=== PATIENT | male | born 1950 | race Two or more races ===

== ENCOUNTER 2016-11-05 10:27 | Observation (INO) | payer SELFPAY ==
--- NOTE | 2016-11-05 11:10 | ER Document Report ---
ED Medical Screen (RME) - General Mode of Arrival: Ambulatory Information source: Patient TRAVEL OUTSIDE OF THE [place] IN LAST 30 DAYS: No - HPI Patient complains to provider of: confusion <NIKOLE IYER - Last Filed: 11/05/16 11:43> <SHANNAN DOWD - Last Filed: 11/05/16 19:37> - General Chief Complaint: Altered Mental Status Stated Complaint: ALTERED MENTAL STATUS Time Seen by Provider: 11/05/16 10:55 Notes: Patient is Khmer speaking, family is with him to interpret. Per family patient has been confused for the past 2 weeks, does not know his location, and urinating in odd places. Family states that he recently came to the [place] from [place] about 3 weeks ago, en route patient missed all of his flights. Patient denies pain and fever. Patient is not on any new medications and has no history of dementia. (NIKOLE IYER) - Related Data Allergies/Adverse Reactions: No Known Allergies Allergy (Verified 11/05/16 10:43) Past Medical History - General Information source: Patient - Social History Family history: Reviewed & Not Pertinent Renal/ Medical History: Denies: Hx Peritoneal Dialysis <NIKOLE IYER - Last Filed: 11/05/16 11:43> Review of Systems - Review of Systems Neurological/Psychological: See HPI, Confusion <NIKOLE IYER - Last Filed: 11/05/16 11:43> Physical Exam - General General appearance: Appears well - Neurological Orientation: Disoriented to place Speech: Other - conflabulation <NIKOLE IYER - Last Filed: 11/05/16 11:43> Course - Laboratory Result Diagrams: 11/05/16 11:20 11/05/16 11:20 <NIKOLE IYER - Last Filed: 11/05/16 11:43> - Laboratory Result Diagrams: 11/05/16 11:20 11/05/16 11:20 <SHANNAN DOWD - Last Filed: 11/05/16 19:37> - Vital Signs Vital signs: Temp Pulse Resp BP Pulse Ox 97.8 F 80 146/51 H 94 11/05/16 15:29 11/05/16 15:29 11/05/16 15:29 11/05/16 15:29 - Laboratory Laboratory results interpreted by me: 11/05/16 11/05/1617 11:20 11:20 14:50 Hgb 12.9 L RDW 14.1 H Fibrinogen Sodium 134.5 L Chloride 93 L BUN 26 H Creatinine 1.29 H Est GFR (Non-Af Amer) 55 L Glucose 466 H* POC Glucose Hemoglobin A1c % Iron AST 15 L Total Protein 8.4 H Urine Protein 30 H Urine Glucose (UA) >=500 H Urine Blood MODERATE H Ur Leukocyte Esterase LARGE H 11/05/16 11/05/16 11/05/16 16:55 17:12 17:12 Hgb RDW Fibrinogen 607 H Sodium Chloride BUN Creatinine Est GFR (Non-Af Amer) Glucose POC Glucose 327 H Hemoglobin A1c % Iron 21.7 L AST Total Protein Urine Protein Urine Glucose (UA) Urine Blood Ur Leukocyte Esterase 11/05/16 17:12 Hgb RDW Fibrinogen Sodium Chloride BUN Creatinine Est GFR (Non-Af Amer) Glucose POC Glucose Hemoglobin A1c % 11.4 H Iron AST Total Protein Urine Protein Urine Glucose (UA) Urine Blood Ur Leukocyte Esterase Doctor's Discharge <NIKOLE IYER - Last Filed: 11/05/16 11:43> <SHANNAN DOWD - Last Filed: 11/05/16 19:37> - Discharge Clinical Impression: UTI (urinary tract infection) Qualifiers: Urinary tract infection type: site unspecified Hematuria presence: without hematuria Qualified Code(s): N39.0 - Urinary tract infection, site not specified Scribe Documentation - Scribe Written by Scribe:: delvin Reece, 11/05/16, 1144 acting as scribe for :: Bre <NIKOLE IYER - Last Filed: 11/05/16 11:43>
[2016-11-05 12:05] LABS: ABSOLUTE BASOPHILS # (AUTO) 0.1 10^3/uL (0.0-0.2); ABSOLUTE EOSINOPHILS # (AUTO) 0.2 10^3/uL (0.0-0.6); ABSOLUTE LYMPHOCYTES (AUTO) 2.4 10^3/uL (0.5-4.7); ABSOLUTE MONOCYTES (AUTO) 0.6 10^3/uL (0.1-1.4); ABSOLUTE NEUT (AUTO) 6.9 10^3/uL (1.7-8.2); BASOPHILS % (AUTO) 0.7 % (0-2); EOSINOPHILS % (AUTO) 1.6 % (0-6); HEMATOCRIT 39.9 % (37.9-51.0); HEMOGLOBIN 12.9 g/dL (13.5-17.0); HGB HCT DIFFERENCE -1.2; LYMPHOCYTES % (AUTO) 23.9 % (13-45); MEAN CORPUSCULAR HEMOGLOBIN 28.5 pg (27.0-33.4); MEAN CORPUSCULAR HGB CONC 32.3 g/dL (32.0-36.0); MEAN CORPUSCULAR VOLUME 88 fl (80-97); MONOCYTES % (AUTO) 5.7 % (3-13); RED BLOOD COUNT 4.53 10^6/uL (4.35-5.55); RED CELL DISTRIBUTION WIDTH 14.1 % (11.5-14.0); SEGMENTED NEUTROPHILS % (AUTO) 68.1 % (42-78); WHITE BLOOD COUNT 10.2 10^3/uL (4.0-10.5)
[2016-11-05 12:13] LABS: ALANINE AMINOTRANSFERASE 30 U/L (21-72); ALBUMIN 4.1 g/dL (3.5-5.0); ALKALINE PHOSPHATASE 86 U/L (38-126); ANION GAP 16 (5-19); ASPARTATE AMINO TRANSFERASE 15 U/L (17-59); BILIRUBIN,DIRECT 0.3 mg/dL (0.0-0.4); BILIRUBIN,TOTAL 0.7 mg/dL (0.2-1.3); BLOOD UREA NITROGEN 26 mg/dL (7-20); CALCIUM 9.9 mg/dL (8.4-10.2); CARBON DIOXIDE 26 mmol/L (22-30); CHLORIDE 93 mmol/L (98-107); CREATININE RESULT 1.29 mg/dL (0.52-1.25); POTASSIUM 4.5 mmol/L (3.6-5.0); SODIUM 134.5 mmol/L (137-145); TOTAL PROTEIN 8.4 g/dL (6.3-8.2)
[2016-11-05 12:26] LABS: GLUCOSE 466 mg/dL (75-110)
[2016-11-05 12:51] LABS: FREE T3 3.14 pg/mL (2.77-5.27)
[2016-11-05 13:04] LABS: THYROID STIMULATING HORMONE 1.21 uIU/mL (0.47-4.68)
--- NOTE | 2016-11-05 13:52 | EKG REPORT ---
SEVERITY:- BORDERLINE ECG - SINUS RHYTHM BORDERLINE LEFT AXIS DEVIATION BORDERLINE T WAVE ABNORMALITIES : Confirmed by: Zeinab Miller 05-Nov-2016 13:52:14
[2016-11-05 15:23] LABS: APPEARANCE,URINE CLOUDY; BILIRUBIN,URINE NEGATIVE (NEGATIVE); GLUCOSE, URINE >=500 mg/dL (NEGATIVE); KETONES,URINE NEGATIVE (NEGATIVE); LEUKOCYTE ESTERASE,URINE LARGE (NEGATIVE); NITRITE,URINE NEGATIVE (NEGATIVE); PROTEIN,URINE 30 mg/dL (NEGATIVE); URINE SPECIFIC GRAVITY 1.017; UROBILINOGEN,URINE NEGATIVE mg/dL (<2.0)
--- NOTE | 2016-11-05 15:23 | ER Document Report ---
ED General - General Chief Complaint: Altered Mental Status Stated Complaint: ALTERED MENTAL STATUS Time Seen by Provider: 11/05/16 10:55 Mode of Arrival: Ambulatory Notes: Patient is being seen today for altered mental status and confusion and forgetfulness and unusual behavior. Patient came here by airplane flight from [facility] 3 weeks ago to visit family here. Family relates that he began having problems on the flight here from [facility] and urinated upon himself a couple of times during the flight. Since they've arrived here, patient is having difficulty remembering where he is and getting lost in the house. He is also urinating in inappropriate places during the night. Family says he doesn't make sense in some of his conversations. Doesn't remember his date of . They say he was fine in [place] before this flight here. He has no history of mental status changes or dementia. TRAVEL OUTSIDE OF THE [place] IN LAST 30 DAYS: No - Related Data Allergies/Adverse Reactions: No Known Allergies Allergy (Verified 11/05/16 10:43) Home Medications: Current Home Medications Aspegic 100 mg .NOT FROM [facility] 11/05/16 [History] Atorvastatin Calcium [Lipitor 20 mg Tablet] 20 mg PO QHS 11/05/16 [History] Diamicron 60 mg .NOT FROM [place] 11/05/16 [History] Enalapril Maleate [Vasotec 20 mg Tablet] 20 mg PO DAILY 11/05/16 [History] Metformin HCl [Glucophage] 500 mg PO DAILY 11/05/16 [History] Past Medical History - General Information source: Patient - Social History Smoking Status: Never Smoker Chew tobacco use (# tins/day): No Frequency of alcohol use: None Drug Abuse: None Family History: Reviewed & Not Pertinent Patient has suicidal ideation: No Patient has homicidal ideation: No - Past Medical History Cardiac Medical History: Reports: Hx Hypercholesterolemia, Hx Hypertension Endocrine Medical History: Reports: Hx Diabetes Mellitus Type 2 Surgical Hx: Negative - Immunizations Hx Diphtheria, Pertussis, Tetanus Vaccination: No Review of Systems - Review of Systems Notes: Review of systems is a little difficult because patient came with, but his family speaks fairly well, especially apparently his son. REVIEW OF SYSTEMS: CONSTITUTIONAL : Denies fever. EENT: Denies eye, ear, nose or mouth or throat pain or other symptoms. CARDIOVASCULAR: Denies chest pain. RESPIRATORY: Denies cough, chest congestion, or shortness of breath. GASTROINTESTINAL: Denies abdominal pain or nausea, vomiting, or diarrhea. GENITOURINARY: Has urinary frequency, see history of present illness. MUSCULOSKELETAL: Denies back or neck pain. Denies joint pain or swelling. SKIN: Denies rash or skin lesions. NEUROLOGICAL: Denies LOC or altered mental status. Denies headache. Denies sensory loss or motor deficits. ALL OTHER SYSTEMS REVIEWED AND NEGATIVE. Physical Exam - Vital signs Vitals: Temp Pulse BP Pulse Ox 98.5 F 103 H 125/61 94 11/05/16 10:31 11/05/16 10:31 11/05/16 10:31 11/05/16 10:31 Interpretation: Normal - Notes Notes: PHYSICAL EXAMINATION: GENERAL: Well-appearing, in no acute distress. HEAD: Atraumatic, normocephalic. NECK: Normal range of motion, supple. LUNGS: Breath sounds clear and equal bilaterally. HEART: Regular rate and rhythm without murmurs. ABDOMEN: Soft, nontender. No guarding or rebound. BACK: No tenderness throughout entire back. EXTREMITIES: Normal range of motion without pain. NEUROLOGICAL: Normal speech, normal gait. Normal sensory, motor, and reflex exams. Awake, alert, and oriented x3. SKIN: Warm, dry, no rashes. Course - Re-evaluation Re-evalutation: 11/05/16 15:38 Patient brought one of his medicines, his statin medication. He supposedly has blood pressure medicine and diabetes medicine, both pills, at home. 11/05/16 16:07 Patient urine looks like a UTI. Patient's blood sugars 466. Spoke with Dr. 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 - Vital Signs Vital signs: Temp Pulse Resp BP Pulse Ox 97.8 F 80 146/51 H 94 11/05/16 15:29 11/05/16 15:29 11/05/16 15:29 11/05/16 15:29 - Laboratory Result Diagrams: 11/05/16 11:20 11/05/16 11:20 Laboratory results interpreted by me: 11/05/16 11/05/16 11/05/16 11:20 11:20 14:50 Hgb 12.9 L RDW 14.1 H Fibrinogen Sodium 134.5 L Chloride 93 L BUN 26 H Creatinine 1.29 H Est GFR (Non-Af Amer) 55 L Glucose 466 H* POC Glucose Hemoglobin A1c % Iron AST 15 L Total Protein 8.4 H Urine Protein 30 H Urine Glucose (UA) >=500 H Urine Blood MODERATE H Ur Leukocyte Esterase LARGE H 11/05/16 11/05/16 11/05/16 16:55 17:12 17:12 Hgb RDW Fibrinogen 607 H Sodium Chloride BUN Creatinine Est GFR (Non-Af Amer) Glucose POC Glucose 327 H Hemoglobin A1c % Iron 21.7 L AST Total Protein Urine Protein Urine Glucose (UA) Urine Blood Ur Leukocyte Esterase 11/05/16 17:12 Hgb RDW Fibrinogen Sodium Chloride BUN Creatinine Est GFR (Non-Af Amer) Glucose POC Glucose Hemoglobin A1c % 11.4 H Iron AST Total Protein Urine Protein Urine Glucose (UA) Urine Blood Ur Leukocyte Esterase Discharge - Discharge Clinical Impression: UTI (urinary tract infection) Qualifiers: Urinary tract infection type: site unspecified Hematuria presence: without hematuria Qualified Code(s): N39.0 - Urinary tract infection, site not specified Admitting Provider: Hospitalist Unit Admitted: Medical Floor
[2016-11-05] MEDS ORDERED: ACETAMINOPHEN 325 MG TABLET PO PRN (17:22)
[2016-11-05] MEDS ORDERED: ONDANSETRON 4 MG TAB.RAPDIS PO PRN (17:22)
[2016-11-05] MEDS ORDERED: DEXTROSE 50%-WATER 25 GM/50 ML DISP.SYRIN IV PRN ×2 (17:22)
[2016-11-05] MEDS ORDERED: NORMAL SALINE 1000 ML 1,000 ML IV PRN (17:22)
[2016-11-05] MEDS ORDERED: GLUCAGON,HUMAN RECOMB 1 MG INJ IM PRN (17:22)
[2016-11-05] MEDS ORDERED: DEXTROSE 40% GEL 15 GM TUBE PO PRN ×2 (17:22)
[2016-11-05] MEDS ORDERED: NORMAL SALINE 1000 ML 1,000 ML IV ONE (17:28)
--- NOTE | 2016-11-05 17:39 | PDOC H&P ---
History of Present Illness Admission Date/PCP: 11/05/16 16:29 History of Present Illness: KIERRA ROY is a 66 year old male who arrived approximately 3 weeks ago from [facility] was brought to the emergency department by his son for inability to control his urine, and altered mental status. Patient is a known diabetic, hypertensive, hyperlipidemia who had a stroke in March, is unable to provide any history and all history is obtained from his son. Patient does not speak Wallisian and attempts at Tajik through the [employer] [facility] commodity management specialist service were unsuccessful. Patient's son reports that he was this way on the plane. Patient has not seen his son since 2011. Patient is found to have a UTI, hyperglycemia, and mild renal insufficiency is referred to hospital service. Past Medical History Cardiac Medical History: Reports: Hyperlipidema, Hypertension Neurological Medical History: Reports: Ischemic CVA Endocrine Medical History: Reports: Diabetes Mellitus Type 2 Past Surgical History Past Surgical History: Reports: Thyroidectomy - Surgery, partial Social History Smoking Status: Former Smoker Frequency of Alcohol Use: None Amount of Alcoholic Beverages Per Day: previous etoh Hx Recreational Drug Use: No Hx Prescription Drug Abuse: No - Advance Directive Resuscitation Status: Full Code Surrogate healthcare decision maker:: Son, Ilan Roy Family History Family History: None Family History: Unable to obtain secondary to encephalopathy, and son is unaware of family history Parental Family History Reviewed: No Children Family History Reviewed: No Sibling(s) Family History Reviewed.: No Medication/Allergy Allergies/Adverse Reactions: No Known Allergies Allergy (Verified 11/05/16 10:43) Review of Systems ROS unobtainable: Due to mental status Physical Exam Vital Signs: Temp Pulse Resp BP Pulse Ox 97.8 F 80 146/51 H 94 11/05/16 15:29 11/05/16 15:29 11/05/16 15:29 11/05/16 15:29 General appearance: PRESENT: no acute distress, well-developed, well-nourished Head exam: PRESENT: atraumatic, normocephalic Eye exam: PRESENT: conjunctiva pink, EOMI, PERRLA. ABSENT: scleral icterus Ear exam: PRESENT: normal external ear exam Mouth exam: PRESENT: dry mucosa, tongue midline Neck exam: ABSENT: JVD, lymphadenopathy, thyromegaly, tracheal deviation Respiratory exam: PRESENT: clear to auscultation ramila. ABSENT: rales, rhonchi, wheezes Cardiovascular exam: PRESENT: RRR, +S1, +S2. ABSENT: clicks, diastolic murmur, gallop, rubs, systolic murmur Pulses: PRESENT: normal dorsalis pedis pul Vascular exam: PRESENT: normal capillary refill GI/Abdominal exam: PRESENT: normal bowel sounds, soft, tenderness - Mild suprapubic tenderness. ABSENT: distended, guarding, mass, Bets's sign, organolmegaly, rebound Rectal exam: PRESENT: deferred Gentrourinary exam: ABSENT: scrotal swelling, testicular tenderness, urethral discharge Extremities exam: PRESENT: full ROM. ABSENT: calf tenderness, clubbing, pedal edema Musculoskeletal exam: PRESENT: ambulatory Neurological exam: PRESENT: alert, awake, oriented to person, oriented to situation, CN II-XII grossly intact. ABSENT: oriented to place, oriented to time, motor sensory deficit Psychiatric exam: PRESENT: appropriate affect, normal mood. ABSENT: homicidal ideation, suicidal ideation Skin exam: PRESENT: dry, intact, warm. ABSENT: cyanosis, rash Results Impressions: Head CT 11/05/16 11:04 IMPRESSION: Chronic ischemic changes. Assessment & Plan - Diagnosis (1) Acute encephalopathy Is this a current diagnosis for this admission?: YesPlan: This is likely secondary to UTI. Will monitor for changes. Patient also has a prior history of CVA. (2) UTI (urinary tract infection) Qualifiers: Urinary tract infection type: site unspecified Hematuria presence: without hematuria Qualified Code(s): N39.0 - Urinary tract infection, site not specified Is this a current diagnosis for this admission?: YesPlan: Initiate patient on Levaquin and send culture. 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 Will continue his metformin and based on patient's medications which are listed in Tajik he appears to be on the sulfonylurea and we will place him on glipizide. (4) Anemia Qualifiers: Anemia type: unspecified type Qualified Code(s): D64.9 - Anemia, unspecified Is this a current diagnosis for this admission?: YesPlan: Will obtain anemia labs. Concern for unusual pathogens due to patient's country of origin have been considered. (5) Hypertension Qualifiers: Hypertension type: unspecified secondary hypertension Qualified Code (s): I15.9 - Secondary hypertension, unspecified; I15 - Secondary hypertension Is this a current diagnosis for this admission?: YesPlan: Will continue enalapril (6) Hyperlipidemia Qualifiers: Hyperlipidemia type: unspecified Qualified Code(s): E78.5 - Hyperlipidemia, unspecified Is this a current diagnosis for this admission?: YesPlan: Continue statin (7) Cerebral arteriosclerosis with history of previous cerebrovascular accident Is this a current diagnosis for this admission?: Yes (8) mild right hemiparesis Is this a current diagnosis for this admission?: Yes - Time Time Spent: Greater than 70 Minutes Medications reviewed and adjusted accordingly: Yes Anticipated discharge: Home Within: within 48 hours - Inpatient Certification Based on my medical assessment, after consideration of the patient's comorbidities, presenting symptoms, or acuity I expect that the services needed warrant INPATIENT care.: No I certify that my determination is in accordance with my understanding of Medicare's requirements for reasonable and necessary INPATIENT services [42 CFR 412.3e].: No Medical Necessity: Need For IV Fluids, Need for IV Antibiotics Post Hospital Care: D/C Inflated Pad Buffer Documentation
[2016-11-05 17:43] LABS: FIBRINOGEN 607 mg/dL (209-497); PARTIAL THROMBOPLASTIN TIME 28.4 SEC (23.5-35.8)
[2016-11-05] MEDS ORDERED: LEVOFLOXACIN 750 MG/D5W RTU 750 MG/150 ML RTUPB IV ONE (18:00)
[2016-11-05 18:37] LABS: ADD HIVPANEL? NO; HIV (1 AND 2) ANTIBODY NEGATIVE (NEGATIVE)
[2016-11-05 19:02] LABS: FOLATE 9.89 ng/mL (>2.76)
[2016-11-05] MEDS: ATORVASTATIN CALCIUM 20 MG TABLET PO SCH (22:51)
[2016-11-05] MEDS: ENALAPRIL MALEATE 2.5 MG TABLET PO SCH (22:51)
[2016-11-05] MEDS: INSULIN LISPRO 100 UNIT/ML 3 ML VIAL SUBCUT PRN (22:59)
[2016-11-06] MEDS ORDERED: LORAZEPAM INJ 2 MG/1 ML VIAL ONE (05:01)
[2016-11-06] MEDS ORDERED: LORAZEPAM INJ 2 MG/1 ML VIAL IV ONE (05:15)
[2016-11-06 07:29] LABS: HEMATOCRIT 33.5 % (37.9-51.0); HEMOGLOBIN 11.3 g/dL (13.5-17.0); HGB HCT DIFFERENCE 0.4; MEAN CORPUSCULAR HEMOGLOBIN 28.7 pg (27.0-33.4); MEAN CORPUSCULAR HGB CONC 33.7 g/dL (32.0-36.0); MEAN CORPUSCULAR VOLUME 85 fl (80-97); RED BLOOD COUNT 3.93 10^6/uL (4.35-5.55); RED CELL DISTRIBUTION WIDTH 13.9 % (11.5-14.0); WHITE BLOOD COUNT 8.3 10^3/uL (4.0-10.5)
[2016-11-06 07:41] LABS: ANION GAP 9 (5-19); BLOOD UREA NITROGEN 28 mg/dL (7-20); CARBON DIOXIDE 23 mmol/L (22-30); CHLORIDE 104 mmol/L (98-107); CREATININE RESULT 1.16 mg/dL (0.52-1.25); GLUCOSE 217 mg/dL (75-110); POTASSIUM 4.3 mmol/L (3.6-5.0); SODIUM 136.4 mmol/L (137-145)
[2016-11-06] MEDS ORDERED: METFORMIN HCL 500 MG TABLET PO SCH ×2 (08:00→16:00)
[2016-11-06] MEDS: INSULIN LISPRO 100 UNIT/ML 3 ML VIAL SUBCUT PRN ×2 (08:20→12:29)
[2016-11-06] MEDS: GLIPIZIDE 10 MG TABLET PO SCH ×2 (08:20→16:56)
[2016-11-06] MEDS ORDERED: LEVOFLOXACIN 750 MG/D5W RTU 750 MG/150 ML RTUPB IV SCH (10:00)
[2016-11-06] MEDS: ASPIRIN 325 MG TABLET PO SCH (10:49)
[2016-11-06] MEDS: ENALAPRIL MALEATE 2.5 MG TABLET PO SCH ×2 (10:49→21:36)
--- NOTE | 2016-11-06 14:25 | PDOC PROGRESS REPORT ---
Subjective Progress Note for:: 11/06/16 Subjective:: Patient trying to leave earlier. Speaks mongolian but unable to focus w/ portable mine wirer. Family provides info and reportedly patient understands malay. He felt like patient is pretending not to understand. Pt able to communicate, speaks/understands very little malay. No reported temp spikes or SOB, N/V diarrhea. Physical Exam Vital Signs: Temp Pulse Resp BP Pulse Ox 98.2 F 97 18 129/68 H 96 11/06/16 11:00 11/06/16 11:00 11/06/16 11:00 11/06/16 11:00 11/06/16 11:00 Intake & Output 11/05/16 11/06/16 11/07/16 06:59 06:59 06:59 Intake Total 1500 Balance 1500 Weight 81 kg General appearance: PRESENT: no acute distress, cooperative Head exam: PRESENT: normocephalic Eye exam: PRESENT: EOMI Ear exam: PRESENT: normal external ear exam. ABSENT: drainage Mouth exam: PRESENT: moist, neck supple Neck exam: ABSENT: JVD Respiratory exam: PRESENT: clear to auscultation ramila, unlabored. ABSENT: rhonchi, wheezes Cardiovascular exam: PRESENT: RRR. ABSENT: gallop GI/Abdominal exam: PRESENT: distended, hypoactive bowel sounds, soft. ABSENT: tenderness Extremities exam: ABSENT: pedal edema Neurological exam: PRESENT: alert, awake Psychiatric exam: ABSENT: agitated Focused psych exam: ABSENT: restlessness Skin exam: PRESENT: dry, warm. ABSENT: cyanosis Results Laboratory Results: 11/06/16 07:13 11/06/16 07:13 11/06/16 11/06/16 07:13 07:13 WBC 8.3 RBC 3.93 L Hgb 11.3 L Hct 33.5 L MCV 85 MCH 28.7 MCHC 33.7 RDW 13.9 Plt Count 241 Sodium 136.4 L Potassium 4.3 Chloride 104 Carbon Dioxide 23 Anion Gap 9 BUN 28 H Creatinine 1.16 Est GFR ( Amer) > 60 Est GFR (Non-Af Amer) > 60 Glucose 217 H Calcium 9.0 Impressions: Head CT 11/05/16 11:04 IMPRESSION: Chronic ischemic changes. Assessment & Plan - Diagnosis (1) Acute encephalopathy Is this a current diagnosis for this admission?: Yes (2) Anemia Qualifiers: Anemia type: unspecified type Qualified Code(s): D64.9 - Anemia, unspecified Is this a current diagnosis for this admission?: Yes (3) UTI (urinary tract infection) Qualifiers: Urinary tract infection type: site unspecified Hematuria presence: without hematuria Qualified Code(s): N39.0 - Urinary tract infection, site not specified Is this a current diagnosis for this admission?: Yes (4) Cerebral arteriosclerosis with history of previous cerebrovascular accident Is this a current diagnosis for this admission?: Yes (5) Hyperglycemia due to type 2 diabetes mellitus Qualifiers: 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 insulin 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: without absorber operator use Qualified Code(s): E11.65 - Type 2 diabetes mellitus with hyperglycemia Is this a current diagnosis for this admission?: Yes (6) Hyperlipidemia Qualifiers: Hyperlipidemia type: unspecified Qualified Code(s): E78.5 - Hyperlipidemia, unspecified Is this a current diagnosis for this admission?: Yes (7) Hypertension Qualifiers: Hypertension type: unspecified secondary hypertension Qualified Code (s): I15.9 - Secondary hypertension, unspecified; I15 - Secondary hypertension Is this a current diagnosis for this admission?: Yes - Time Time Spent with patient: 25-34 minutes - Plan Summary Plan Summary: Change antibx to invanz. Follow cultures. Cont. sitter. Cont. sliding scale. Increase metformin.
[2016-11-06] MEDS ORDERED: ERTAPENEM SODIUM INJ 1 GM VIAL IV SCH (14:30)
[2016-11-06] MEDS: ERTAPENEM SODIUM 1 GM in NORMAL SALINE 50 ML IV SCH (15:43)
[2016-11-06] MEDS ORDERED: METFORMIN HCL 500 MG TABLET PO ONE (17:30)
[2016-11-06] MEDS: LORAZEPAM INJ 2 MG/1 ML VIAL IV PRN ×2 (21:36→23:39)
[2016-11-06] MEDS: ATORVASTATIN CALCIUM 20 MG TABLET PO SCH (21:37)
[2016-11-07] MEDS: LORAZEPAM INJ 2 MG/1 ML VIAL IV PRN (04:05)
[2016-11-07] MEDS: METFORMIN HCL 500 MG TABLET PO SCH ×2 (08:38→16:38)
[2016-11-07] MEDS: INSULIN LISPRO 100 UNIT/ML 3 ML VIAL SUBCUT PRN ×3 (08:38→21:51)
[2016-11-07] MEDS: GLIPIZIDE 10 MG TABLET PO SCH ×2 (08:38→16:38)
[2016-11-07] MEDS: ASPIRIN 325 MG TABLET PO SCH (10:22)
[2016-11-07] MEDS: ENALAPRIL MALEATE 2.5 MG TABLET PO SCH ×2 (10:22→21:51)
[2016-11-07] MEDS: ERTAPENEM SODIUM 1 GM in NORMAL SALINE 50 ML IV SCH (16:38)
--- NOTE | 2016-11-07 16:49 | PDOC PROGRESS REPORT ---
Subjective Progress Note for:: 11/07/16 Subjective:: Patient reportedly calm last night but receive Ativan. No reported agitation, or aggressive behavior. No reported shortness of breath or chest pain. No temperature spikes, nausea vomiting or diarrhea. Family at bedside, reports intermittent confusion. Patient apparently noticed to have confusion on his way going to the [facility] about 2 weeks ago according to the son. Physical Exam Vital Signs: Temp Pulse Resp BP Pulse Ox 98.5 F 93 18 144/53 H 97 11/07/16 12:40 11/07/16 12:40 11/07/16 12:40 11/07/16 12:40 11/07/16 12:40 Intake & Output 11/06/16 11/07/16 11/08/16 06:59 06:59 06:59 Intake Total 1500 3217 Output Total 300 Balance 1500 2917 Weight 81 kg 81 kg General appearance: PRESENT: no acute distress, cooperative Head exam: PRESENT: normocephalic Eye exam: PRESENT: EOMI Mouth exam: PRESENT: moist, neck supple Neck exam: ABSENT: JVD Respiratory exam: PRESENT: clear to auscultation ramila. ABSENT: rhonchi, wheezes Cardiovascular exam: PRESENT: RRR. ABSENT: gallop GI/Abdominal exam: PRESENT: soft. ABSENT: distended, tenderness Extremities exam: ABSENT: pedal edema Neurological exam: PRESENT: alert, awake, oriented to situation Skin exam: PRESENT: dry, warm. ABSENT: cyanosis Results Laboratory Results: 11/06/16 07:13 11/06/16 07:13 Impressions: Head CT 11/05/16 11:04 IMPRESSION: Chronic ischemic changes. Assessment & Plan - Diagnosis (1) Acute encephalopathy Is this a current diagnosis for this admission?: Yes (2) Anemia Qualifiers: Anemia type: unspecified type Qualified Code(s): D64.9 - Anemia, unspecified Is this a current diagnosis for this admission?: Yes (3) UTI (urinary tract infection) Qualifiers: Urinary tract infection type: site unspecified Hematuria presence: without hematuria Qualified Code(s): N39.0 - Urinary tract infection, site not specified Is this a current diagnosis for this admission?: Yes (4) Cerebral arteriosclerosis with history of previous cerebrovascular accident Is this a current diagnosis for this admission?: Yes (5) Hyperglycemia due to type 2 diabetes mellitus Qualifiers: Diabetes mellitus care home insulin use: without care home use Qualified Code(s): E11.65 - Type 2 diabetes mellitus with hyperglycemia Is this a current diagnosis for this admission?: Yes (6) Hyperlipidemia Qualifiers: Hyperlipidemia type: unspecified Qualified Code(s): E78.5 - Hyperlipidemia, unspecified Is this a current diagnosis for this admission?: Yes (7) Hypertension Qualifiers: Hypertension type: unspecified secondary hypertension Qualified Code (s): I15.9 - Secondary hypertension, unspecified; I15 - Secondary hypertension Is this a current diagnosis for this admission?: Yes - Time Time Spent with patient: 15-24 minutes - Plan Summary Plan Summary: Continue current antibiotics. Follow culture of the urine. Obtain MRI of the brain. His thyroid panel was normal, as well as the B12 levels.
[2016-11-07] MEDS: ATORVASTATIN CALCIUM 20 MG TABLET PO SCH (21:52)
[2016-11-08] MEDS: GLIPIZIDE 10 MG TABLET PO SCH ×2 (07:55→18:02)
[2016-11-08] MEDS: METFORMIN HCL 500 MG TABLET PO SCH ×2 (07:55→18:01)
[2016-11-08] MEDS: ENALAPRIL MALEATE 2.5 MG TABLET PO SCH ×2 (10:16→21:38)
[2016-11-08] MEDS: ASPIRIN 325 MG TABLET PO SCH (10:16)
[2016-11-08] MEDS: INSULIN LISPRO 100 UNIT/ML 3 ML VIAL SUBCUT PRN ×3 (11:22→21:41)
--- NOTE | 2016-11-08 16:50 | PDOC PROGRESS REPORT ---
Subjective Progress Note for:: 11/08/16 Subjective:: Patient is more cooperative today. He is off restraints. No reported agitation , diarrhea , temperature spikes, nausea nor vomiting. Family was at bedside during evaluation, patient's mental status apparently improving as well. Patient does not speak Arabic, son is his goodwill representative. Physical Exam Vital Signs: Temp Pulse Resp BP Pulse Ox 98.3 F 85 20 140/64 H 95 11/08/16 15:07 11/08/16 15:07 11/08/16 15:07 11/08/16 11:43 11/08/16 15:07 Intake & Output 11/07/16 11/08/16 11/09/16 06:59 06:59 06:59 Intake Total 3217 2297 570 Output Total 300 Balance 2917 2297 570 Weight 81 kg 81.5 kg General appearance: PRESENT: no acute distress, cooperative Head exam: PRESENT: normocephalic Eye exam: PRESENT: EOMI Mouth exam: PRESENT: moist, neck supple Neck exam: ABSENT: JVD Respiratory exam: PRESENT: clear to auscultation ramila. ABSENT: rhonchi, wheezes Cardiovascular exam: PRESENT: RRR. ABSENT: gallop GI/Abdominal exam: PRESENT: soft. ABSENT: distended, tenderness Extremities exam: ABSENT: pedal edema Neurological exam: PRESENT: alert, awake Skin exam: PRESENT: dry, warm. ABSENT: cyanosis Results Laboratory Results: 11/06/16 07:13 11/06/16 07:13 Impressions: Head CT 11/05/16 11:04 IMPRESSION: Chronic ischemic changes. Head MRI 11/07/16 12:45 IMPRESSION: ATROPHY AND CHRONIC MICRO-VASCULAR ISCHEMIC CHANGES. 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 NO ACUTE FINDINGS. Assessment & Plan - Diagnosis (1) Acute encephalopathy Is this a current diagnosis for this admission?: Yes (2) Anemia Qualifiers: Anemia type: unspecified type Qualified Code(s): D64.9 - Anemia, unspecified Is this a current diagnosis for this admission?: Yes (3) UTI (urinary tract infection) Qualifiers: Urinary tract infection type: site unspecified Hematuria presence: without hematuria Qualified Code(s): N39.0 - Urinary tract infection, site not specified Is this a current diagnosis for this admission?: Yes (4) Cerebral arteriosclerosis with history of previous cerebrovascular accident Is this a current diagnosis for this admission?: Yes (5) Hyperglycemia due to type 2 diabetes mellitus Qualifiers: Diabetes mellitus halfway insulin use: without halfway use Qualified Code(s): E11.65 - Type 2 diabetes mellitus with hyperglycemia Is this a current diagnosis for this admission?: Yes (6) Hyperlipidemia Qualifiers: Hyperlipidemia type: unspecified Qualified Code(s): E78.5 - Hyperlipidemia, unspecified Is this a current diagnosis for this admission?: Yes (7) Hypertension Qualifiers: Hypertension type: unspecified secondary hypertension Qualified Code (s): I15.9 - Secondary hypertension, unspecified; I15 - Secondary hypertension Is this a current diagnosis for this admission?: Yes - Time Time Spent with patient: 25-34 minutes - Plan Summary Plan Summary: After long discussion with the family, regarding plan of care, patient will require at least 10 days of IV antibiotics due to complicated UTI brought about by ESBL producing organism. Family agreed for PICC line placement, and eventually bringing the patient to the hospital, for infusion with Invanz daily. We will arrange this with tool and production planner. Continue current antibiotics. Discontinue maintenance IV fluid.
[2016-11-08] MEDS: ERTAPENEM SODIUM 1 GM in NORMAL SALINE 50 ML IV SCH (18:59)
[2016-11-08] MEDS: ATORVASTATIN CALCIUM 20 MG TABLET PO SCH (21:39)
[2016-11-09] MEDS: METFORMIN HCL 500 MG TABLET PO SCH ×2 (11:06→18:20)
[2016-11-09] MEDS: GLIPIZIDE 10 MG TABLET PO SCH ×2 (11:06→18:20)
[2016-11-09] MEDS: ASPIRIN 325 MG TABLET PO SCH (11:06)
[2016-11-09] MEDS: ENALAPRIL MALEATE 2.5 MG TABLET PO SCH (11:07)
[2016-11-09] MEDS ORDERED: NORMAL SALINE 10 ML SDV (AFTER EACH USE) IV PRN (14:12)
[2016-11-09] MEDS ORDERED: ERTAPENEM SODIUM INJ 1 GM VIAL IM ONE (17:00)
[2016-11-09] MEDS ORDERED: LIDOCAINE HCL 1% INJ (FOR 1 GM VIAL) INJ ONE (17:00)
--- NOTE | 2016-11-09 18:00 | PDOC DISCHARGE SUMMARY ---
General - Admit/Disc Date/PCP Admission Date/Primary Care Provider: 11/05/16 17:23 Discharge Date: 11/09/16 - Discharge Diagnosis (1) Acute encephalopathy Is this a current diagnosis for this admission?: Yes (2) Anemia Is this a current diagnosis for this admission?: Yes (3) UTI (urinary tract infection) Is this a current diagnosis for this admission?: Yes (4) Cerebral arteriosclerosis with history of previous cerebrovascular accident Is this a current diagnosis for this admission?: Yes (5) Hyperglycemia due to type 2 diabetes mellitus Is this a current diagnosis for this admission?: Yes (6) Hyperlipidemia Is this a current diagnosis for this admission?: Yes (7) Hypertension Is this a current diagnosis for this admission?: Yes - Additional Information Resuscitation Status: Full Code Discharge Diet: Cardiac - low-fat low-salt, Diabetic - no concentrated sweets Discharge Activity: Activity As Tolerated, Balance Activity w/Rest, Supervised Activity Home Medications: Atorvastatin Calcium [Lipitor 20 mg Tablet] 20 mg PO QHS 11/05/16 Enalapril Maleate [Vasotec 20 mg Tablet] 20 mg PO DAILY 11/05/16 Aspirin [Aspirin 325 mg Tablet] 325 mg PO DAILY tablet 11/09/16 Ertapenem Sodium [Invanz Inj 1 gm Vial] 1 gm IM DAILY 7 Days 11/09/16 Glipizide [Glucotrol 10 mg Tablet] 10 mg PO BIDBS #60 tablet 11/09/16 Metformin HCl [Glucophage XR 500 mg Tablet] 1,000 mg PO DAILY #60 tablets Additional Information: Patient to go to the infusion clinic for intramuscular injection of Invanz daily for 7 days. History of Present Illness Patient complains of: Altered mental status History of Present Illness: KIERRA ROY is a 66 year old male, who has a history of diabetes, hypertension , hyperlipidemia, prior stroke recently immigrated to the [place] was brought to the emergency room by the family due to altered mental status, and inability to control the urine. Patient does not speak Maltese and therefore information provided by the family at bedside. Patient reportedly has baseline confusion prior to entering the [facility]. In the emergency room, he was hyperglycemic, with urinary tract infection, and renal insufficiency and therefore was referred for admission. For details please refer to history and physical examination performed by the admitting physician. Hospital Course Hospital Course: The patient was admitted to telemetry. The patient was hydrated with intravenous fluids, creatinine has normalized. Patient was begun on broad- spectrum antibiotic to cover for urinary tract infection. Patient's confusion however did not improve and therefore intravenous antibiotic was changed to Invanz. Eventually the urine culture grew ESBL Klebsiella. Since then the patient's confusion improved. Patient initially was placed on restraints as she was trying to leave the hospital, eventually this was discontinued and the patient has been cooperative. Course was noted for hyperglycemia, where she was placed on glyburide, and his metformin dose was increased. Blood sugar improved. Case was discussed with the family regarding treatment option for the patient which will require at least 10 days of IV antibiotics. Family opted for IV infusion on an outpatient basis through the infusion clinic or emergency room. Therefore a PICC line was arranged for placement. naval surface fire support planner was consulted to arrange to the infusion clinic. Patient however pulled out the PICC line. Therefore pharmacy was consulted and Invanz was appropriate for intramuscular administration, this was arranged with social service assistant, family was agreeable to the plan, the patient was eventually discharged home. Physical Exam Vital Signs: Temp Pulse Resp BP Pulse Ox 98.1 F 85 20 128/56 H 100 11/09/16 12:00 11/09/16 12:00 11/09/16 12:00 11/09/16 12:00 11/09/16 12:00 Intake & Output 11/08/16 11/09/16 11/10/16 06:59 06:59 06:59 Intake Total 2297 1170 840 Balance 2297 1170 840 Weight 81.5 kg 81.7 kg Results Laboratory Results: 11/06/16 07:13 11/06/16 07:13 Impressions: Head CT 11/05/16 11:04 IMPRESSION: Chronic ischemic changes. Head MRI 11/07/16 12:45 IMPRESSION: ATROPHY AND CHRONIC MICRO-VASCULAR ISCHEMIC CHANGES. 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 NO ACUTE FINDINGS. Guidance Fluoroscopy 11/09/16 00:00 IMPRESSION: SUCCESSFUL PLACEMENT OF A 5 FR DUAL LUMEN 43 CM PICC IN THE left basilic VEIN. Interventional Vascular Procedure 11/09/16 00:00 IMPRESSION: SUCCESSFUL PLACEMENT OF A 5 FR DUAL LUMEN 43 CM PICC IN THE left basilic VEIN. PICC Line Insertion 11/09/16 00:00 IMPRESSION: SUCCESSFUL PLACEMENT OF A 5 FR DUAL LUMEN 43 CM PICC IN THE left basilic VEIN. Qualifiers PATEINT BEING DISCHARGED WITH ANY OF THE FOLLOWING DIAGNOSIS?: No Plan Discharge Plan: Follow-up with primary care physician in one week. Time Spent: Less than 30 Minutes
[2016-11-09] MEDS ORDERED: LIDOCAINE 1% INJ-PF (10 MG/ML) 30 ML SDV ONE (18:10)
[2016-11-09 20:18] VITALS: BP 133/63
[2016-11-09] MEDS ORDERED: NORMAL SALINE 10 ML SDV (SCHEDULED) IV SCH (22:00)
[2016-11-10] MEDS ORDERED: ERTAPENEM SODIUM INJ 1 GM VIAL IM SCH (10:00)
[2016-11-10] MEDS ORDERED: LIDOCAINE HCL 1% INJ (FOR 1 GM VIAL) INJ SCH (10:00)
== END 2016-11-09 20:39 | disposition home or self-care (01) ==
LOC: ER 10:27 → UNDOADMIN 16:29 → EH 16:29 → INTOOBSV 17:23 → 5 21:00
PROVIDERS: ADMIT Internal Medicine; ATTEND Internal Medicine
PROC: 02HV33Z Insertion of Infusion Device into Superior Vena Cava, Percutaneous Approach (ICD-10-PCS; principal; 2016-11-09)
PROC: B518ZZA Fluoroscopy of Superior Vena Cava, Guidance (ICD-10-PCS; 2016-11-09)
PROC: B548ZZA Ultrasonography of Superior Vena Cava, Guidance (ICD-10-PCS; 2016-11-09)
DX: G93.40 Encephalopathy, unspecified (principal); N39.0 Urinary tract infection, site not specified; B96.1 Klebsiella pneumoniae [K. pneumoniae] as the cause of diseases classified elsewhere; Z16.12 Extended spectrum beta lactamase (ESBL) resistance; I67.2 Cerebral atherosclerosis; Z86.73 Personal history of transient ischemic attack (TIA), and cerebral infarction without residual deficits; E11.65 Type 2 diabetes mellitus with hyperglycemia; D64.9 Anemia, unspecified; E78.5 Hyperlipidemia, unspecified; I15.9 Secondary hypertension, unspecified; G81.91 Hemiplegia, unspecified affecting right dominant side; Z79.84 Long term (current) use of oral hypoglycemic drugs; Z79.82 Long term (current) use of aspirin; Z78.1 Physical restraint status
CPT/HCPCS: 93005; 99285; 36415 ×2; 87086; 84439; 86880; 82962 ×5; 82607; 82728; 82746; 83540; 83550; 83615; 84443; 85025; 85027; 85384; 85610; 85730; 87088; 85045; 80048; 80053; 81001; 86701; 87186; 84466; 84481; 83036; 70551; 36569; 77001; 76937; 70450; 93010; J3490 ×12; J1815 ×4; J1335 ×3; J2060 ×2; J7030 ×2; J1956 ×2; J1642; G0378